=== PATIENT | female | born 1955 | race Caucasian/White ===

== ENCOUNTER → 2017-04-28 | Day surgery (SDC) | payer OTHER | END | disposition home or self-care (01) | LOC: FAS 08:33 | DX: K64.1 Second degree hemorrhoids (principal); M79.7 Fibromyalgia; J44.9 Chronic obstructive pulmonary disease, unspecified; J45.909 Unspecified asthma, uncomplicated; K58.9 Irritable bowel syndrome, unspecified; M19.90 Unspecified osteoarthritis, unspecified site; M54.5 Low back pain; M81.0 Age-related osteoporosis without current pathological fracture; F32.9 Major depressive disorder, single episode, unspecified; F41.9 Anxiety disorder, unspecified; F17.210 Nicotine dependence, cigarettes, uncomplicated; Z90.710 Acquired absence of both cervix and uterus; Z90.49 Acquired absence of other specified parts of digestive tract; Z88.1 Allergy status to other antibiotic agents; Z88.5 Allergy status to narcotic agent; Z88.6 Allergy status to analgesic agent; Z98.51 Tubal ligation status; Z82.61 Family history of arthritis; Z82.62 Family history of osteoporosis; Z81.1 Family history of alcohol abuse and dependence; Z79.818 Long term (current) use of other agents affecting estrogen receptors and estrogen levels; Z79.899 Other long term (current) drug therapy; Z98.890 Other specified postprocedural states | CPT/HCPCS: J1100; J2704 ==

== ENCOUNTER 2022-04-15 16:34 | Emergency (ER) | payer OTHER ==
[~2022-04-15 16:34] MED LIST: ACIDOPHILUS X-1 EACH PO; CERTAGEN1 EACH PO; ESCITALOPRAM OX10 MG PO; ESTRADIOL1 MG PO; GABAPENTIN600 MG PO; PERFOROMIS20 MCG/2 M INH; PREDNISONE 20MG20 MG PO; TIZANIDINE HCL2 MG PO; VENTOLIN (2.5 MG/3 M INH; VIBRAMYCIN100 MG PO; YUPELRI175 MCG/3 INH
[2022-04-15 18:26] LABS: BASOPHIL 0.3 % (0-2); EOSINOPHIL 0.5 % (0-7); HCT 37.9 % (37.0-47.0); HGB 12.1 g/dl (12.5-16.0); LYMPHOCYTE 27.1 % (15-48); MCH 33.2 pg (25.0-31.0); MCHC 31.9 g/dL (32.0-36.0); MCV 104.1 fL (78.0-100.0); MONOCYTE 5.8 % (0-12); MPV 10.1 fL (6.0-9.5); NEUTROPHIL 65.8 % (41-80); NRBC 0; PLT 154 K/uL (150-400); RBC 3.64 M/uL (4.20-5.40); WBC 6.2 K/uL (4.0-10.5)
[2022-04-15 18:38] LABS: BUN/CREAT RATIO (CALC) 9.7 RATIO; CREATININE 0.72 mg/dL (0.51-0.95); POTASSIUM 3.9 mmol/L (3.5-5.1)
[2022-04-15] MEDS ORDERED: PREDNISONE 20MG20 MG PO (19:56)
[2022-04-15] MEDS ORDERED: ZPAK PO (19:56)
== END 2022-04-15 20:23 | disposition home or self-care (01) ==
LOC: FER 16:34
PROVIDERS: Nurse Practitioner Family
DX: J44.1 Chronic obstructive pulmonary disease with (acute) exacerbation (principal); Z88.0 Allergy status to penicillin; Z88.5 Allergy status to narcotic agent; Z88.6 Allergy status to analgesic agent
CPT/HCPCS: 36415; 71045; 80048; 85025; 94640; 94664; 94762; J1100